=== PATIENT | male | born 1945 | race African-American/Black ===

== ENCOUNTER → 2021-04-27 | Outpatient (CLI) | payer MEDICARE, MEDICAID | END | disposition home or self-care (01) | LOC: MRI 10:19 | PROVIDERS: ATTEND Neurological Surgery | DX: M47.817 Spondylosis without myelopathy or radiculopathy, lumbosacral region (principal); M48.02 Spinal stenosis, cervical region; M50.31 Other cervical disc degeneration, high cervical region; M46.02 Spinal enthesopathy, cervical region | CPT/HCPCS: 72131 ==

== ENCOUNTER 2022-01-20 18:09 | Emergency (ER) | payer MEDICARE, MEDICAID ==
[~2022-01-20] VITALS: Ht 180.3 cm; Wt 91.0 kg
[~2022-01-20 18:09] MED LIST: ASPI-1497 MT; ATEN50TA MT; EZET-55 MT; GABA-529 MT; LISI40TA13 MT; SITA100T11 MT; TAMS-11 PO
[2022-01-20 18:12] VITALS: BP 121/56
== END 2022-01-20 22:30 | disposition left against medical advice (07) ==
LOC: ER 18:09
DX: Z53.21 Procedure and treatment not carried out due to patient leaving prior to being seen by health care provider (principal)

== ENCOUNTER 2022-03-02 09:21 | Inpatient (IN) | payer MEDICARE, MEDICAID ==
[~2022-03-02] VITALS: Ht 180.3 cm; Wt 85.7 kg
[2022-03-02] MEDS ORDERED: SODIUM CHLORIDE 0.9% 1,000 ML IV ONE ×2 (09:45→13:00)
[2022-03-02 11:16] LABS: BASOPHILS % 0.7 % (0.0-2.0); EOSINOPHILS % 0.6 % (0.0-5.0); HEMATOCRIT. 42.3 % (42.0-52.0); HEMOGLOBIN. 14.1 g/dL (14.0-18.0); LYMPHOCYTES % 29.8 % (20.0-50.0); MEAN CORPUSCULAR HEMOGLOBIN 30.6 pg (28.0-32.0); MEAN CORPUSCULAR VOLUME 92.1 fL (80.0-94.0); MEAN PLATELET VOLUME 9.2 fl (7.4-10.4); MONOCYTES % 7.4 % (2.0-8.0); NEUTROPHILS % 61.5 % (40.0-76.0); PLATELET 249 x1000/uL (130-400); RED BLOOD CELL COUNT 4.59 mill/uL (4.7-6.1); RED CELL DISTRIBUTION WIDTH 13.5 % (11.6-14.6)
[2022-03-02 12:13] LABS: CHLORIDE 98 mEq/L (98-107)
[2022-03-02] MEDS ORDERED: INSULIN REGULAR (HUMULIN R) 300UNITS/3ML VIAL SUBCUT ONE (14:30)
[2022-03-02] MEDS ORDERED: ASPIRIN 325MG TABLET PO ONE (14:30)
[2022-03-02 15:53] LABS: HEMATOCRIT. 36.8 % (42.0-52.0); HEMOGLOBIN. 12.6 g/dL (14.0-18.0); MEAN CORPUSCULAR HEMOGLOBIN 30.5 pg (28.0-32.0); MEAN PLATELET VOLUME 8.7 fl (7.4-10.4); PLATELET 215 x1000/uL (130-400); RED BLOOD CELL COUNT 4.14 mill/uL (4.7-6.1); RED CELL DISTRIBUTION WIDTH 13.2 % (11.6-14.6)
[2022-03-02 16:21] LABS: PLATELET ESTIMATE NORMAL
[2022-03-02] MEDS ORDERED: ACETAMINOPHEN 325MG TABLET PO PRN ×2 (21:00)
[2022-03-02] MEDS ORDERED: CLONIDINE 0.1MG TABLET PO PRN (21:00)
[2022-03-02] MEDS ORDERED: DOCUSATE SODIUM 100MG CAPSULE PO PRN (21:00)
[2022-03-02] MEDS ORDERED: ONDANSETRON HCL 4MG/2ML INJ IV PRN (21:00)
[2022-03-02] MEDS ORDERED: HYDROCODONE/ACETAMINOPHEN 7.5/325MG TABLET PO PRN (21:00)
[2022-03-02] MEDS ORDERED: DEXTROSE 50% WATER 50ML SYRINGE IV PRN (21:00)
[2022-03-02] MEDS ORDERED: NALOXONE HCL 0.4MG/ML VIAL IV PRN (21:30)
[2022-03-02] MEDS: FAMOTIDINE 20MG TABLET PO SCH (21:30)
[2022-03-02] MEDS: INSULIN LISPRO 100 UNITS/ML SUBCUT SCH (21:30)
[2022-03-02] MEDS: SODIUM CHLORIDE 0.9% 1,000 ML IV SCH (21:34)
[2022-03-02] MEDS: BLOOD SUGAR DIAGNOSTIC STRIP TEST SCH (22:08)
[2022-03-02 23:53] LABS: CHLORIDE 100 mEq/L (98-107)
[2022-03-03 00:04] LABS: PHOSPHORUS 2.6 mg/dL (2.5-4.9)
[2022-03-03 03:35] LABS: CHLORIDE 107 mEq/L (98-107)
[2022-03-03 03:39] LABS: PHOSPHORUS 2.3 mg/dL (2.5-4.9)
[2022-03-03] MEDS: SODIUM CHLORIDE 0.9% 1,000 ML IV SCH ×2 (03:45→16:18)
[2022-03-03 04:01] LABS: T4 FREE 1.87 ng/dL (0.76-1.46)
[2022-03-03 05:24] VITALS: BP 119/62
[2022-03-03] MEDS ORDERED: SODIUM PHOS,M-BASIC-D-BASIC 10 MM in DEXT 5% WATER 246.6667 ML IV NR (06:30)
[2022-03-03] MEDS: BLOOD SUGAR DIAGNOSTIC STRIP TEST SCH ×4 (06:46→21:05)
[2022-03-03 08:00] VITALS: BP 104/46
[2022-03-03 09:42] LABS: BG BASE EXCESS -2.7 mmol/L (-2.0-2.0); BG CARBOXYHEMOGLOBIN 0.1 % (0.5-1.5); BG DEOXYHEMOGLOBIN 3.1 % (0.0-5.0); BG HCO3 ACT 20.5 mmol/L (22.0-26.0); BG OXYGEN SATURATION 96.9 % (92.0-98.5); BG OXYHEMOGLOBIN 96.8 % (94.0-97.0); BG PCO2 31.1 mmHg (35.0-45.0); BG PH 7.437 (7.350-7.450); BG PO2 93.4 mmHg (75.0-100.0); BG SAMPLE SITE RIGHT RADIAL; BG TOTAL HEMOGLOBIN 13.3 g/dL (12.0-18.0); BG VENT MODE ROOM AIR
[2022-03-03] MEDS: ENOXAPARIN 40MG/0.4ML SYR SUBCUT SCH (10:01)
[2022-03-03] MEDS: INSULIN GLARGINE 100 UNITS/ML SUBCUT SCH (10:08)
[2022-03-03] MEDS: INSULIN LISPRO 100 UNITS/ML SUBCUT SCH ×7 (10:09→21:00)
[2022-03-03 10:37] LABS: CLARITY URINE CLOUDY (CLEAR); COLOR URINE YELLOW (YELLOW); KETONES URINE 1+ (NEGATIVE); LEUKOCYTE ESTERASE URINE 1+ (NEGATIVE); NITRITE URINE NEGATIVE (NEGATIVE); OCCULT BLOOD URINE NEGATIVE (NEGATIVE); PROTEIN URINE NEGATIVE (NEGATIVE); SPECIFIC GRAVITY URINE 1.023 (1.005-1.030); UROBILINOGEN URINE 0.2 E.U./dL (0.2-1.0)
[2022-03-03 11:33] LABS: *AMPHETAMINES SCREEN URINE NEGATIVE (NEGATIVE); *BARBITURATES SCREEN URINE NEGATIVE (NEGATIVE); *BENZODIAZEPINES SCREEN URINE NEGATIVE (NEGATIVE); *COCAINE SCREEN URINE NEGATIVE (NEGATIVE); CANNABINOID URINE SCREEN NEGATIVE (NEGATIVE); METHADONE URINE SCREEN NEGATIVE (NEGATIVE); OPIATES URINE SCREEN NEGATIVE (NEGATIVE); PHENCYCLIDINE URINE SCREEN NEGATIVE (NEGATIVE)
[2022-03-03 12:00] VITALS: BP 103/57
[2022-03-03 12:16] LABS: CHLORIDE 102 mEq/L (98-107)
[2022-03-03 12:35] LABS: PHOSPHORUS 3.4 mg/dL (2.5-4.9)
[2022-03-03 16:00] VITALS: BP 118/60
[2022-03-03 17:31] LABS: CHLORIDE 103 mEq/L (98-107)
[2022-03-03] MEDS: METFORMIN HCL 850MG TABLET PO SCH (17:33)
[2022-03-03 17:37] LABS: PHOSPHORUS 3.1 mg/dL (2.5-4.9)
[2022-03-03 20:00] VITALS: BP_SYST 123; BP_SYST 92; BP_SYST 97; BP_DIAS 54; BP_DIAS 55; BP_DIAS 62
[2022-03-03] MEDS: FAMOTIDINE 20MG TABLET PO SCH (21:05)
[2022-03-04] VITALS: BP 113/67
[2022-03-04 04:00] VITALS: BP 105/52
[2022-03-04] MEDS: SODIUM CHLORIDE 0.9% 1,000 ML IV SCH ×2 (05:46→20:42)
[2022-03-04] MEDS: BLOOD SUGAR DIAGNOSTIC STRIP TEST SCH ×4 (06:49→20:43)
[2022-03-04] MEDS: METFORMIN HCL 850MG TABLET PO SCH ×2 (08:41→20:07)
[2022-03-04] MEDS: INSULIN LISPRO 100 UNITS/ML SUBCUT SCH ×7 (08:44→20:43)
[2022-03-04] MEDS: ENOXAPARIN 40MG/0.4ML SYR SUBCUT SCH (08:50)
[2022-03-04] MEDS: INSULIN GLARGINE 100 UNITS/ML SUBCUT SCH (10:00)
[2022-03-04] MEDS ORDERED: VANCOMYCIN 1500MG in DEXTROSE 5% WATER 250ML IV SCH (12:00)
[2022-03-04] MEDS: PIPERACILLIN/TAZOBACTAM 3.375 G in DEXTROSE 5% WATER 50 ML IV SCH ×2 (13:55→20:43)
[2022-03-04] MEDS ORDERED: LIDOCAINE HCL 1% 10 MG/ML 5ML VIAL INJ SCH (17:00)
[2022-03-04 20:00] VITALS: BP 101/68
[2022-03-04] MEDS: FAMOTIDINE 20MG TABLET PO SCH (20:42)
[2022-03-05] VITALS: BP 127/68
[2022-03-05] MEDS ORDERED: VANCOMYCIN 1G PREMIX 200 ML IV SCH (02:00)
[2022-03-05 04:00] VITALS: BP 106/73
[2022-03-05] MEDS: PIPERACILLIN/TAZOBACTAM 3.375 G in DEXTROSE 5% WATER 50 ML IV SCH (05:59)
[2022-03-05] MEDS: INSULIN LISPRO 100 UNITS/ML SUBCUT SCH ×2 (05:59)
[2022-03-05] MEDS: BLOOD SUGAR DIAGNOSTIC STRIP TEST SCH (05:59)
[2022-03-05 08:00] VITALS: BP 103/62
[2022-03-05] MEDS: METFORMIN HCL 850MG TABLET PO SCH (08:49)
[2022-03-05] MEDS: ENOXAPARIN 40MG/0.4ML SYR SUBCUT SCH (08:49)
[2022-03-05] MEDS: SODIUM CHLORIDE 0.9% 1,000 ML IV SCH (08:49)
[2022-03-05] MEDS: INSULIN GLARGINE 100 UNITS/ML SUBCUT SCH (11:06)
[2022-03-05 12:00] VITALS: BP 113/75
== END 2022-03-05 12:20 | disposition home health service (06) | DRG 639 ==
LOC: ER 09:36 → MICUSO 19:22 → EDBEDREQ 19:24 → EDBEDREQTM 19:24 → 7WST 03-03 04:15
PROVIDERS: ADMIT Hospitalist; ATTEND Hospitalist
DX: E11.00 Type 2 diabetes mellitus with hyperosmolarity without nonketotic hyperglycemic-hyperosmolar coma (NKHHC) (principal); E05.90 Thyrotoxicosis, unspecified without thyrotoxic crisis or storm; E86.0 Dehydration; E88.89 Other specified metabolic disorders; I10 Essential (primary) hypertension; I48.91 Unspecified atrial fibrillation; Z79.84 Long term (current) use of oral hypoglycemic drugs; Z91.119 Patient's noncompliance with dietary regimen due to unspecified reason; Z79.899 Other long term (current) drug therapy; Z95.0 Presence of cardiac pacemaker
CPT/HCPCS: 36415; 36600; 71045; 80048; 80053; 80305; 81003; 82010; 82375; 82805; 82962; 83036; 83735; 83880; 84100; 84145; 84439; 84443; 84484; 85025; 93005; 93970; 97162; 97166; 99285; J1650; J1815; J2543; J3370; J3490; J7030; J7060

== ENCOUNTER 2023-10-21 02:34 | Emergency (ER) | payer MEDICARE, MEDICAID ==
[~2023-10-21] VITALS: Ht 182.9 cm; Wt 80.0 kg
[~2023-10-21 02:34] MED LIST changes: -LISI40TA13 MT
[2023-10-21 02:42] VITALS: O2SAT 99
[2023-10-21] MEDS ORDERED: LIDOCAINE 5% PATCH TOP ONE (03:00)
[2023-10-21] MEDS ORDERED: ACETAMINOPHEN 325MG TABLET PO ONE (03:00)
[2023-10-21] MEDS: ACETAMINOPHEN 325MG TABLET PO NR (04:50)
[2023-10-21] MEDS: LIDOCAINE 5% PATCH TOP NR (04:58)
[2023-10-21] MEDS ORDERED: ACET-2708 MT (06:08)
[2023-10-21 09:24] VITALS: BP 108/61; PULSE 74; RESP 14; TEMP 37.16964; O2SAT 99
== END 2023-10-21 09:26 | disposition home or self-care (01) ==
LOC: ER 02:34
DX: M25.511 Pain in right shoulder (principal); E11.9 Type 2 diabetes mellitus without complications; R51.9 Headache, unspecified; I10 Essential (primary) hypertension; Z98.890 Other specified postprocedural states; Z79.899 Other long term (current) drug therapy
CPT/HCPCS: 73030; 99285

== ENCOUNTER 2024-08-31 20:51 | Emergency (ER) | payer MEDICARE, MEDICAID ==
[~2024-08-31] VITALS: Ht 180.3 cm; Wt 78.0 kg
[~2024-08-31 20:51] MED LIST changes: +ACET-2708 MT; -TAMS-11 PO; +TAMS-54 PO
[2024-08-31 21:03] VITALS: O2SAT 99
[2024-08-31 21:07] VITALS: BP 102/64; PULSE 64; RESP 15; TEMP 36.9; O2SAT 96
== END 2024-08-31 22:55 | disposition left against medical advice (07) ==
LOC: ER 20:51
DX: R33.8 Other retention of urine (principal); Z53.21 Procedure and treatment not carried out due to patient leaving prior to being seen by health care provider

== ENCOUNTER 2024-10-25 19:34 | Emergency (ER) | payer MEDICARE, MEDICAID ==
[~2024-10-25] VITALS: Ht 177.8 cm; Wt 98.6 kg
[2024-10-25 19:41] VITALS: TEMP 36.9; O2SAT 98
[2024-10-25] MEDS ORDERED: TAMS-54 MT (20:07)
[2024-10-25 20:34] VITALS: BP 110/65; PULSE 66; RESP 14; O2SAT 95
== END 2024-10-25 20:39 | disposition home or self-care (01) ==
LOC: ER 19:34
DX: N41.8 Other inflammatory diseases of prostate (principal); E11.9 Type 2 diabetes mellitus without complications; I10 Essential (primary) hypertension; Z76.0 Encounter for issue of repeat prescription; Z79.82 Long term (current) use of aspirin; Z79.84 Long term (current) use of oral hypoglycemic drugs; Z79.899 Other long term (current) drug therapy; Z91.148 Patient's other noncompliance with medication regimen for other reason
CPT/HCPCS: 99281